=== PATIENT | female | born 1990 ===

== ENCOUNTER 2022-08-13 09:10 | Outpatient (CLI) | payer OTHER | END 2022-08-13 10:48 | disposition home or self-care (01) | LOC: NST 09:10 | PROVIDERS: ATTEND Obstetrics & Gynecology Gynecology | DX: Z34.83 Encounter for supervision of other normal pregnancy, third trimester (principal) ==

== ENCOUNTER 2022-08-13 10:54 | Inpatient (IN) | payer OTHER ==
[~2022-08-13] VITALS: Ht 152.4 cm; Wt 2.7 kg
[2022-08-19] MEDS ORDERED: PRENATAL CAPLE1 EAC1 PO (13:19)
[2022-08-19] MEDS ORDERED: PEPCID20 MG PO (13:20)
[2022-08-19] MEDS ORDERED: IRON325 MG PO (13:20)
[2022-08-19] MEDS ORDERED: IRO-PLEX LIQUI120 ML (15:46)
== END 2022-08-22 15:38 | disposition home or self-care (01) | DRG 788 ==
LOC: EDUNIT# 13:45 → OB/GYN 08-19 11:23 → LDR 08-19 11:23 → O/R 08-19 11:23 → LDR 08-19 12:44 → O/R 08-20 11:36 → OB/GYN 08-20 13:16
PROVIDERS: ADMIT Obstetrics & Gynecology; ATTEND Obstetrics & Gynecology
PROC: 3E0P7VZ Introduction of Hormone into Female Reproductive, Via Natural or Artificial Opening (ICD-10-PCS; 2022-08-19)
PROC: 4A1HXCZ Monitoring of Products of Conception, Cardiac Rate, External Approach (ICD-10-PCS; 2022-08-19)
PROC: 3E033VJ Introduction of Other Hormone into Peripheral Vein, Percutaneous Approach (ICD-10-PCS; 2022-08-20)
PROC: 10D00Z1 Extraction of Products of Conception, Low, Open Approach (ICD-10-PCS; principal; 2022-08-20 12:15)
DX: O61.0 Failed medical induction of labor (principal); Z3A.40 40 weeks gestation of pregnancy; Z37.0 Single live birth; Z20.822 Contact with and (suspected) exposure to COVID-19